=== PATIENT | female | born 1990 | race Caucasian/White ===

== ENCOUNTER 2017-12-19 12:47 | Inpatient (IN) | payer MEDICAID ==
[~2017-12-19] VITALS: Ht 172.7 cm; Wt 83.0 kg
[2017-12-19] VITALS (11 sets, daily range): BP systolic 114–136; BP diastolic 62–81; PULSE 67–86; RESP 16–18; TEMP 97.7–98.3; O2SAT 96–100
[2017-12-19] MEDS ORDERED: LACTATED RINGER'S 1000 ML INJ 1,000 ML IV ONE (13:00)
--- NOTE | 2017-12-19 13:13 | HHI.HP ---
HPI Chief Complaint repeat cd Travel History International Travel<30 Days: No Contact w/Intl Traveler<30Days: No Known Affected Area: No History of Present Illness HPI 27 yo with iup at 40w3d who desires iol as she has unfavorable cervix and did not go into labor on own. Good fm, irreg ctx, neg vb or lof. PNC starting at 11 weeks. Weight gain 34 pounds. LAbs + MJ initial ob labs, neg in third trimester. Gbs negative. Weeks Gestation: 40 Para: 1 : 2 History Past Medical History Narrative Medical hx of depression per hospital record review Medical History: Denies Significant Hx Past Surgical History Narrative Surgical appendectomy, leep, CD for nrfht Family History Family History: Negative Social History Alcohol Use: No Tobacco Use: No Substance Abuse: Yes (prior mj use) Allergies-Medications (Allergen,Severity, Reaction): Coded Allergies: No Known Allergies (Unverified , 12/19/17) Review of Systems General / Constitutional: No: Fever, Weight Gain, Chills, Other Eyes: No: Diploplia, Blurred Vision, Visual changes, Pain, Photophobia HENT: No: Headaches, Vertigo, Lightheadedness Cardiovascular: No: Irregular Rhythm, Chest Pain or Discomfort, Palpitations, Tachycardia, Syncope, Varicosities, Edema, Cyanosis Respiratory: No: Cough, Short of Breath, Other Gastrointestinal: No: Nausea, Vomiting, Diarrhea Genitourinary: No: Decreased Urinary Output, Oliguria Musculoskeletal: No: Limited ROM, Weakness, Cramping, Edema, Pain Skin: No Rash, No Itching, No Dryness, No Lumps, No Change in Pigmentation, No Change in Nails, No Alopecia, No Lesions Neurologic: No: Weakness, Dizziness, Syncope, Focal Abnormalities, Coordination Problem, Headache, Slurred Speech, Seizures Psychiatric: No: Depression, Suicidal Ideations, Homicidal Ideation Endocrine: No: Heat Intolerance, Cold Intolerance, Polydipsia, Polyuria, Other Physical Exam Narrative GENERAL: Well-nourished, well-developed patient. SKIN: Warm and dry. HEAD: Normocephalic and atraumatic. EYES: No scleral icterus. No injection or drainage. ENT: No nasal drainage noted. Mucous membranes pink. Airway patent. NECK: Supple, trachea midline. No JVD. CARDIOVASCULAR: Regular rate and rhythm without murmurs, gallops, or rubs. RESPIRATORY: Breath sounds equal bilaterally. No accessory muscle use. ABDOMEN/GI: Abdomen soft, non-tender, bowel sounds present, no rebound, no guarding Gravid to 40 weeks size GENITOURINARY: External Genitalia: intact and normal in appearance BUS glands: [-] Cervix:cl/50/-3 Presentation: c Membranes: [intact Uterine Contractions: [-] FHT's: BPP 8/8 in office EXTREMITIES: No cyanosis or edema. BACK: Nontender without obvious deformity. No CVA tenderness. NEUROLOGICAL: Awake and alert. Motor and sensory grossly within normal limits. Five out of 5 muscle strength in all muscle groups. Normal speech. Caprini VTE Risk Assessment Caprini VTE Risk Assessment: No/Low Risk (score <= 1) Caprini Risk Assessment Model Point Value = 1 Point Value = 2 Point Value = 3 Point Value = 5 Age 41-60 Minor surgery BMI > 25 kg/m2 Swollen legs Varicose veins or History of unexplained or recurrent spontaneous Oral contraceptives or hormone replacement Sepsis (< 1 month) Serious lung disease, including pneumonia (< 1 month) Abnormal pulmonary function Acute myocardial infarction Congestive heart failure (< 1 month) History of inflammatory bowel disease Medical patient at bed rest Age 61-74 Arthroscopic surgery Major open surgery (> 45 min) Laparoscopic surgery (> 45 min) Malignancy Confined to bed (> 72 hours) Immobilizing plaster cast Central venous access Age >= 75 History of VTE Family history of VTE Factor V Leiden Prothrombin [id number] Lupus anticoagulant Anticardiolipin antibodies Elevated serum homocysteine Heparin-induced thrombocytopenia Other congenital or acquired thrombophilia Stroke (< 1 month) Elective arthroplasty Hip, pelvis, or leg fracture Acute spinal cord injury (< 1 month) Prophylaxis Regimen Total Risk Factor Score Risk Level Prophylaxis Regimen 0-1 Low Early ambulation 2 Moderate Order ONE of the following: *Sequential Compression Device (SCD) *Heparin 5000 units SQ BID 3-4 Higher Order ONE of the following medications: *Heparin 5000 units SQ TID *Enoxaparin/Lovenox 40 mg SQ daily (WT < 150 kg, CrCl > 30 mL/min) *Enoxaparin/Lovenox 30 mg SQ daily (WT < 150 kg, CrCl > 10-29 mL/min) *Enoxaparin/Lovenox 30 mg SQ BID (WT < 150 kg, CrCl > 30 mL/min) AND/OR *Sequential Compression Device (SCD) 5 or more Highest Order ONE of the following medications: *Heparin 5000 units SQ TID (Preferred with Epidurals) *Enoxaparin/Lovenox 40 mg SQ daily (WT < 150 kg, CrCl > 30 mL/min) *Enoxaparin/Lovenox 30 mg SQ daily (WT < 150 kg, CrCl > 10-29 mL/min) *Enoxaparin/Lovenox 30 mg SQ BID (WT < 150 kg, CrCl > 30 mL/min) AND *Sequential Compression Device (SCD) Data Data Vital Signs Reviewed: Yes Orders Orders Admit To Inpatient (12/19/17 ) Vital Signs (Adult) .ON ADMISSION (12/19/17 13:00) Activity Oob Ad Karmen (12/19/17 13:00) Heart (12/19/17 13:00) Urinary Catheter Management JOEY.Q8H (12/19/17 13:00) ^ Preps (12/19/17 13:00) Scd / Abel / Foot Pump JOEY.QSHIFT (12/19/17 13:00) ^ Ultrasound For Locatio (12/19/17 13:00) Diet Npo (12/19/17 Lunch) Lactated Ringer's 1000 Ml Inj (Lr 1000 M (12/19/17 13:00) Lactated Ringer's 1000 Ml Inj (Lr 1000 M (12/19/17 13:30) Cefazolin 2 Gm Premix (Ancef 2 Gm Premix (12/19/17 14:00) Citric Acid-Sodium Citrate Liq (Bicitra (12/19/17 14:30) Type And Screen (12/19/17 13:00) Complete Blood Count With Diff (12/19/17 13:00) Urinalysis - C+S If Indicated (12/19/17 13:00) Drug Screen, Random Urine (12/19/17 13:00) Inpatient Certification (12/19/17 ) Specimen To Be Collected PRN (12/19/17 13:00) Specimen To Be Collected PRN (12/19/17 13:00) Group B Strep: Negative Assessment/Plan Problem List: (1) Encounter for delivery without indication ICD Codes: O82 - Encounter for delivery without indication Assessment and Plan 27 yo with iup at 40w3d here for repeat cd 1) Repeat cd - r/b/a discussed. DEclined iol. Ancef 2 g iv preincision 2) GBS neg 3) MJ + initial ob labs, neg 3rd trimester 4) Fetus- female, 73 %ile, likely 8 - 8.5 lb now Carolyn Martínez MD Dec 19, 2017 13:13
[2017-12-19] MEDS ORDERED: LACTATED RINGER'S 1000 ML INJ 1,000 ML IV SCH (13:30)
[2017-12-19] MEDS ORDERED: ceFAZolin 2 GM PREMIX 50 ML IV SCH (14:00)
[2017-12-19] MEDS ORDERED: CITRIC ACID-SODIUM CITRATE LIQ 30 ML UDC PO SCH (14:30)
[2017-12-19] MEDS ORDERED: MORPHINE SULFATE PF 5 MG/10 ML VIAL ONE (14:30)
[2017-12-19] MEDS ORDERED: ACETAMINOPHEN 1000 MG/100 ML 100 ML IV ONE ×2 (14:30→16:15)
[2017-12-19 14:31] LABS: AUTOMATED NEUTROPHIL # 7.3 TH/MM3 (1.8-7.7); BASOPHIL % 0.2 % (0.0-2.0); EOSINOPHIL # 0.1 TH/MM3 (0-0.4); EOSINOPHIL % 0.6 % (0.0-4.0); HEMATOCRIT 34.1 % (35.0-46.0); HEMOGLOBIN 11.4 GM/DL (11.6-15.3); LYMPH % 25.3 % (9.0-44.0); LYMPHOCYTE # 2.8 TH/MM3 (1.0-4.8); MEAN CELL VOLUME 85.8 FL (80.0-100.0); MEAN CORPUSCULAR HEMOGLOBIN 28.8 PG (27.0-34.0); MEAN CORPUSCULAR HGB CONC 33.6 % (32.0-36.0); MONO % 7.4 % (0.0-8.0); MONOCYTE # 0.8 TH/MM3 (0-0.9); NEUT % 66.5 % (16.0-70.0); PLATELET COUNT 121 TH/MM3 (150-450); RED BLOOD COUNT 3.98 MIL/MM3 (4.00-5.30)
[2017-12-19 14:46] LABS: BILIRUBIN, URINE NEG (NEG); BLOOD, URINE NEG (NEG); GLUCOSE,URINE NEG (NEG); KETONE, URINE TRACE mg/dL (NEG); MUCUS URINE FEW /lpf (OCC); NITRITE,URINE NEG (NEG); PH, URINE 6.5 (5.0-8.5); SQUAMOUS EPITHELIAL CELL URINE 4 /hpf (0-5); URINE COLOR YELLOW (YELLW/STRAW); URINE LEUKOCYTE ESTERASE NEG (NEG)
[2017-12-19] MEDS ORDERED: METHYLERGONOVINE MALEATE 0.2 MG/ML VIAL ONE (15:36)
[2017-12-19] MEDS ORDERED: ZOLPIDEM TARTRATE 5 MG TAB PO PRN (16:15)
[2017-12-19] MEDS ORDERED: SIMETHICONE 80 MG CHEWABLE TAB PO PRN (16:15)
[2017-12-19] MEDS ORDERED: SODIUM CHLORIDE 0.9% FLUSH 10 ML FLUSH IV FLUSH PRN (16:15)
[2017-12-19] MEDS ORDERED: OXYTOCIN 30 UNITS-500ML PREMIX 500 ML IV ONE (16:15)
[2017-12-19] MEDS ORDERED: ONDANSETRON HCL 4 MG/2 ML VIAL IV PUSH PRN (16:15)
--- NOTE | 2017-12-19 16:23 | PD.OB.DELI ---
Procedure Note Section Procedure Pre Op Diagnosis: (1) Encounter for delivery without indication Post Op Diagnosis: (1) Status post repeat low transverse section (2) Pelvic adhesive disease (3) Encounter for delivery without indication Performed by Carolyn Martínez Procedure: Repeat Low Transverse Sec (vacuum assisted) Indication for delivery: Desired elective repeat Previous condition: None Informed consent obtained: For anesthesia, For procedure Confirmed correct: Patient, Procedure, Site, Time-out taken Anesthesia: Spinal Medication prior to procedure: As documented in eMAR Monitoring during procedure: Blood pressure monitoring, Pulse oximetry Urinary catheter: Inserted using sterile technique, To dependent drainage, ml urine output (200) Sterile preparation: In usual fashion, With 2% chlorexidine (Hibiclens) Position: Supine with wedge to right side, Supine with safety belt applied Operative Features Skin Incision: Pfannenstiel Uterine Incision: Low transverse w/knife / blunt ext Membranes Ruptured: Artificially, Appearance of fluid (clear) Presentation: Occiput anterior Delivery date: Dec 19, 2017 Delivery time: 13:17 Delivery of infant: Assisted (vacuum assisted) : Female One Minute : 8 Five Minute : 9 Weight: 8 lb 4 oz Status of : Viable, Cord blood, Nursery present Placenta delivered: Intact Medications: Antibiotics, Oxytocin, Ergot derivatives Estimated blood loss: 700ml Procedure tolerated: Well Maternal Complications: Uterine atony Maternal Condition: Stable Condition: Stable Procedure in detail dictated. Intraoperative findings: large adhesive band of lower uterine segment to anterior abdominal wall. Adhesion of bladder to lower uterine segment. Decreased uterine tone, pitocin and methergine given with good tone Intercede placed to avoid future adhesions Carolyn Martínez MD Dec 19, 2017 16:22
[2017-12-19] MEDS ORDERED: PRENTAB7 (16:46)
[2017-12-19] MEDS ORDERED: OXYTOCIN 30 UNITS-500ML PREMIX 500 ML ONE (17:00)
--- NOTE | 2017-12-19 20:47 | MP ---
cc: Carolyn Martínez MD DATE OF OPERATION: 12/19/2017 PREOPERATIVE DIAGNOSIS: History of delivery with desired repeat of 40 weeks and 3 days. POSTOPERATIVE DIAGNOSIS: Status post repeat low delivery, pelvic adhesive disease. PROCEDURE PERFORMED: Repeat low transverse delivery with vacuum assistance and lysis of adhesions. SURGEON: Carolyn Martínez MD SOFTWARE DEVELOPER INTERN: [employer] staff. INDICATION: Patient is a 27-year-old G2, P1-0-0-1, one intrauterine 40 weeks and 3 days, who had an Donato score. She did not desire induction and desired to proceed with repeat low transverse delivery, as she had not gone into labor on her own. ANESTHESIA: Spinal. ESTIMATED BLOOD LOSS: 700 mL. URINE OUTPUT: 200 mL. INTRAVENOUS FLUIDS: Crystalloid 2200 mL. PREOPERATIVE ANTIBIOTICS: 1. Ancef 2 g IV given pre-incision. 2. DVT prophylaxis. SCDs bilateral extremities. COMPLICATIONS: Uterine atony well-controlled with Pitocin and a dose of Methergine. DISPOSITION: Stable to PACU. INTRAOPERATIVE FINDING: Viable female , weight of 8 pounds and 4 ounces, of 8 and 9 at 1 minute and 5 minutes, respectively, 3-vessel cord, placenta intact, normal tubes and ovaries bilaterally, uterus with large adhesive band from the lower uterine segment to the anterior abdominal wall, adhesions to the bladder to the lower uterine segment. PROCEDURE IN DETAIL: After review of informed consent, the patient was taken to operating room where a spinal anesthesia was administered without complication. She was placed in the dorsal supine position with slight leftward tilt. A Ellison catheter was placed under sterile conditions. SCDs were placed. The abdomen was prepped and draped in normal sterile fashion. After anesthesia was noted to be adequate, a Pfannenstiel skin incision was made with a scalpel and carried down to underlying layer of fascia with the Bovie. The fascia was incised in the midline. This was extended with Loyd scissors. Of note, there was minimal scarring of the subcutaneous tissue on the fascia. The fascial incision was extended bilaterally with Loyd scissors. The Christian's were used to elevate the fascia superiorly and the rectus muscles were dissected from the fascia with Metzenbaum scissors. There was some scarring. The same was repeated inferiorly. The rectus muscles are in the midline with the hemostat. The peritoneum was tented and entered sharply. There was no adhesion superiorly. This incision was extended bluntly until there was an adhesive band visualized to the lower uterine segment to anterior abdominal wall. A retractor was then placed. The adhesive band was double-clamped with Maxine's, transected with a Bovie and each pedicle was tied with a followed by a free tie to ensure good hemostasis. After the adhesive band was removed, there was better visualization of the lower uterine segment. There were several filmy adhesions from the bladder to the lower uterine segment and these were taken out with Metzenbaum scissors. The bladder blade was then inserted. The lower uterine segment was incised with a scalpel in low transverse fashion. This incision was extended bluntly. The head was grasped and flexed. Fundal pressure was used to try to deliver the fetus. There was no descent noted. Vacuum was applied and there was minimal descent of the fetus. The head was outside of the uterus, but trapped behind the rectus muscles. Decision was made to partially transect the left rectus muscles with the Bovie. The vacuum was applied once again and through one pull the head was fully delivered. The shoulders could not be delivered easily. A hand was inserted into the uterus and the fetus was grasped under the anterior axilla and the anterior shoulder was delivered. This was the right arm and the posterior arm readily followed. The whole body readily followed. Nursery team was at bedside, delayed cord clamping was performed and the baby was handed off to waiting pediatricians. A median infusion of IV Pitocin was started after delivery of the infant. Gentle uterine massage and cord traction was used to deliver the placenta. Moistened laparotomy sponges were used to clear the uterus of any clots, debris and membrane. The uterus was then exteriorized noted to be very boggy and did respond to uterine massage. The uterus was repaired with #1 chromic in a running locked fashion followed by a second imbricating layer. Near the right angle of the hysterotomy was a point of bleeding, a [id number] with 2-0 chromic was used to make this hemostatic. The pedicle of the uterine adhesive band was immediately superior to the hysterotomy, this was noted to be hemostatic. The other pedicle near the left anterior abdominal wall was also noted to be hemostatic, the posterior cul-de-sac was irrigated and suctioned. The uterus was returned to the abdomen, anterior cul-de-sac is irrigated and suctioned. Some of the filmy adhesions that had taken down had minimal oozing. Manda was placed with good hemostasis. Intercede was placed to avoid future adhesive disease. The rectus muscles were inspected and a Bovie was used to ensure hemostasis followed by Manda. The fascia was closed with Vicryl in a running locked fashion, 2 stitches were used. The subcutaneous tissue was irrigated and suctioned. Hemostasis was obtained with a Bovie. The subcuticular tissue was closed with interrupted 2-0 chromic, the skin was reapproximated with 3-0 Monocryl, Steri-Strips were placed, followed by a pressure dressing. Patient sent to PACU in stable condition. Of note, the parents did not desire to have any vaccinations, eye ointment or vitamin K. Discussed with mom, but given that the event did require a vacuum delivery, it would be recommended that she did receive vitamin K to avoid any bleeding, the family did not agree. The nursery team said that they would readdress this with the family and see if they were amendable. Inspection of the infant immediately after surgery did not note any significant bruising at present time. MD CLARE Rolle/cc , 04:36 PM , 08:46 PM
[2017-12-19] MEDS: LACTATED RINGER'S 1000 ML INJ 1,000 ML IV SCH (23:00)
[2017-12-20] MEDS ORDERED: OXYTOCIN 30 UNITS-500ML PREMIX 500 ML IV PRN (02:15)
[2017-12-20] MEDS: DOCUSATE SODIUM 50 MG/SENNA 8.6 MG TAB PO PRN (03:21)
[2017-12-20] MEDS: IBUPROFEN 600 MG TAB PO PRN ×4 (03:21→17:41)
[2017-12-20 04:30] VITALS: TEMP 98.5
[2017-12-20] MEDS: oxyCODONE/ACETAMINOPHEN 5 MG/325 MG TAB PO PRN ×4 (05:05→21:34)
[2017-12-20 06:28] LABS: BASOPHIL # 0.1 TH/MM3 (0-0.2); BASOPHIL % 0.6 % (0.0-2.0); EOSINOPHIL % 0.3 % (0.0-4.0); HEMATOCRIT 31.3 % (35.0-46.0); HEMOGLOBIN 10.4 GM/DL (11.6-15.3); LYMPH % 18.2 % (9.0-44.0); LYMPHOCYTE # 2.5 TH/MM3 (1.0-4.8); MEAN CELL VOLUME 85.8 FL (80.0-100.0); MEAN CORPUSCULAR HEMOGLOBIN 28.6 PG (27.0-34.0); MEAN CORPUSCULAR HGB CONC 33.3 % (32.0-36.0); MONO % 7.3 % (0.0-8.0); NEUT % 73.6 % (16.0-70.0); PLATELET COUNT 109 TH/MM3 (150-450); RED BLOOD COUNT 3.65 MIL/MM3 (4.00-5.30); WHITE BLOOD COUNT 13.6 TH/MM3 (4.0-11.0)
[2017-12-20] MEDS: LACTATED RINGER'S 1000 ML INJ 1,000 ML IV SCH (07:14)
[2017-12-20] MEDS: SODIUM CHLORIDE 0.9% FLUSH 10 ML FLUSH IV FLUSH SCH ×2 (09:00→20:46)
--- NOTE | 2017-12-20 12:19 | HHI.OB ---
Subjective Post Operative Day: 1 Remarks POD#1, S/P repeat cd, stable Objective Vitals/I&O Vital Signs Date Time Temp Pulse Resp B/P (MAP) Pulse Ox O2 Delivery O2 Flow Rate FiO2 12/20/17 04:30 98.5 12/19/17 23:51 98.1 73 18 114/68 (83) 97 12/19/17 20:00 98.3 68 18 127/81 (96) 97 12/19/17 17:58 98.3 16 96 12/19/17 17:25 77 18 119/81 (94) 12/19/17 17:17 97.7 12/19/17 17:12 67 18 97 12/19/17 16:36 68 12/19/17 16:36 18 100 12/19/17 16:35 135/62 (86) 12/19/17 16:21 97.8 72 18 98 12/19/17 13:30 98.3 12/19/17 13:18 86 18 136/77 (96) Result Diagram: 12/20/17 0621 Objective Remarks GENERAL: Well-nourished, well-developed patient. CARDIOVASCULAR: Regular rate and rhythm without murmurs, gallops, or rubs. RESPIRATORY: Breath sounds equal bilaterally. No accessory muscle use. ABDOMEN/GI: Abdomen soft, non-tender, bowel sounds present. Incision: Clean, dry and intact. Fundus: Firm, non-tender at umbilicus. GENITOURINARY: Light to moderate bleeding. EXTREMITIES: No cyanosis or edema, non-tender, without signs of DVT. Medications and IVs Current Medications Medications (Trade) Dose Ordered Sig/Danielle Route Start Time Stop Time Status Last Admin Lactated Ringer's 1,000 ml @ 100 mls/hr Q10H IV 12/19/17 21:14 12/20/17 17:13 12/19/17 23:00 Oxytocin 500 ml @ 100 mls/hr UNSCH X1 PRN IV 12/20/17 02:15 12/21/17 02:14 (NS Flush) 2 ml BID IV FLUSH 12/19/17 21:00 (NS Flush) 2 ml UNSCH PRN IV FLUSH 12/19/17 16:15 (Mylicon Chew) 80 mg QID PRN PO 12/19/17 16:15 (Motrin) 600 mg Q6H PRN PO 12/19/17 16:15 12/20/17 10:21 (Percocet 5-325 Mg) 1 tab Q4H PRN PO 12/19/17 16:15 12/20/17 10:21 (Percocet 5-325 Mg) 2 tab Q4H PRN PO 12/19/17 16:15 (Cathie-Colace) 2 tab Q12H PRN PO 12/19/17 16:15 12/20/17 03:21 (Ambien) 5 mg HS PRN PO 12/19/17 16:15 (M-M-R Ii Inj) 0.5 ml ONCE ONCE SQ 12/20/17 16:00 12/20/17 16:01 (Boostrix Inj) 0.5 ml ONCE ONCE IM 12/20/17 16:00 12/20/17 16:01 (Zofran Inj) 4 mg Q6H PRN IV PUSH 12/19/17 16:15 Assessment/Plan Problem List: (1) Encounter for delivery without indication ICD Codes: O82 - Encounter for delivery without indication Assessment and Plan POD# 1; Doing well, stable. Discharge Planning does not meet criteria Attending Attestation Seen by Osmar Pat MD Dec 20, 2017 12:19
--- NOTE | 2017-12-20 12:20 | HHI.DS ---
Admission Date Dec 19, 2017 at 12:47 Admitting Diagnosis Diagnosis: Delivery Date: Dec 19, 2017 : Repeat : Female Brief History 27 yo with iup at 40w3d who desires iol as she has unfavorable cervix and did not go into labor on own. Good fm, irreg ctx, neg vb or lof. PNC starting at 11 weeks. Weight gain 34 pounds. LAbs + MJ initial ob labs, neg in third trimester. Gbs negative. Pt Condition on Discharge: Good Discharge Disposition: Discharge Home Discharge Instructions Diet Instructions: As Tolerated, No Restrictions Activities You Can Perform: Shower Only-No Bath Activities to Avoid: Prolonged Standing, Strenuous Activity, Driving, Sexual Activity Osmar Sal MD Dec 20, 2017 12:20
[2017-12-20] MEDS ORDERED: OXYC1TAB63 PO (12:23)
[2017-12-20] MEDS ORDERED: IBUP-232 PO (12:23)
[2017-12-20] MEDS ORDERED: MEASLES, MUMPS, RUBELLA VACCINE 0.5 ML VIAL SQ ONE (16:00)
[2017-12-20] MEDS ORDERED: DIPHTH/TETANUS/ACEL PERTUSSIS (BOOSTER) 0.5 ML VIAL/PFS IM ONE (16:00)
[2017-12-20 20:00] VITALS: PULSE 80; RESP 18; TEMP 98.2
[2017-12-21] MEDS: IBUPROFEN 600 MG TAB PO PRN ×2 (00:19→08:24)
[2017-12-21] MEDS: oxyCODONE/ACETAMINOPHEN 5 MG/325 MG TAB PO PRN ×2 (04:06→08:25)
[2017-12-21 07:50] VITALS: BP 138/75; PULSE 86; RESP 18; TEMP 97.5
[2017-12-21] MEDS: DOCUSATE SODIUM 50 MG/SENNA 8.6 MG TAB PO PRN (08:23)
--- NOTE | 2017-12-21 11:23 | HHI.OB ---
Subjective Post Operative Day: 2 Remarks POD#2, Stable, doing well. desires discharge to home Objective Vitals/I&O Vital Signs Date Time Temp Pulse Resp B/P (MAP) Pulse Ox O2 Delivery O2 Flow Rate FiO2 12/21/17 07:50 97.5 86 18 138/75 (96) 12/20/17 20:00 98.2 80 18 Result Diagram: 12/20/17 0621 Objective Remarks GENERAL: Well-nourished, well-developed patient. CARDIOVASCULAR: Regular rate and rhythm without murmurs, gallops, or rubs. RESPIRATORY: Breath sounds equal bilaterally. No accessory muscle use. ABDOMEN/GI: Abdomen soft, non-tender, bowel sounds present. Incision: Clean, dry and intact. Fundus: Firm, non-tender at umbilicus. GENITOURINARY: Light to moderate bleeding. EXTREMITIES: No cyanosis or edema, non-tender, without signs of DVT. Medications and IVs Current Medications Medications (Trade) Dose Ordered Sig/Danielle Route Start Time Stop Time Status Last Admin (NS Flush) 2 ml BID IV FLUSH 12/19/17 21:00 (NS Flush) 2 ml UNSCH PRN IV FLUSH 12/19/17 16:15 (Mylicon Chew) 80 mg QID PRN PO 12/19/17 16:15 (Motrin) 600 mg Q6H PRN PO 12/19/17 16:15 12/21/17 08:24 (Percocet 5-325 Mg) 1 tab Q4H PRN PO 12/19/17 16:15 12/20/17 16:41 (Percocet 5-325 Mg) 2 tab Q4H PRN PO 12/19/17 16:15 12/21/17 08:25 (Cathie-Colace) 2 tab Q12H PRN PO 12/19/17 16:15 12/21/17 08:23 (Ambien) 5 mg HS PRN PO 12/19/17 16:15 (Zofran Inj) 4 mg Q6H PRN IV PUSH 12/19/17 16:15 Assessment/Plan Problem List: (1) Encounter for delivery without indication ICD Codes: O82 - Encounter for delivery without indication Assessment and Plan POD# 2; Doing well, stable. discharge home, RTO 2 weeks Discharge Planning routine Attending Attestation seen by Osmar Pat MD Dec 21, 2017 11:23
== END 2017-12-21 12:13 | disposition home or self-care (01) | DRG 766 ==
LOC: H2EB 12:47 → H1EA 17:47
PROVIDERS: ADMIT Obstetrics & Gynecology; ATTEND Obstetrics & Gynecology
PROC: 10D00Z1 Extraction of Products of Conception, Low, Open Approach (ICD-10-PCS; principal; 2017-12-19)
PROC: 0K8 Muscles, Division (ICD-10-PCS; 2017-12-19)
DX: O34.211 Maternal care for low transverse scar from previous cesarean delivery (principal); O99.89 Other specified diseases and conditions complicating pregnancy, childbirth and the puerperium; N73.6 Female pelvic peritoneal adhesions (postinfective); O62.2 Other uterine inertia; Z37.0 Single live birth; Z3A.40 40 weeks gestation of pregnancy
CPT/HCPCS: 59025; 80307; 81001; 85025; 86850; 86900; 86901; C1765; J0131; J0690; J2210; J2274; J2590; J7120